=== PATIENT | female | born 1985 | race Two or more races ===

== ENCOUNTER 2024-06-13 19:05 | Emergency (ER) | payer BC ==
[~2024-06-13] VITALS: Ht 157.5 cm; Wt 61.7 kg
[2024-06-13 19:10] VITALS: TEMP 98.2
[2024-06-13 20:05] LABS: BASOPHILS # (AUTO) 0.1 K/uL (0.0-0.2); BASOPHILS % (AUTO) 0.9 % (0.0-2.0); EOSINOPHILS # (AUTO) 0.2 K/uL (0.0-0.7); EOSINOPHILS % (AUTO) 2.4 % (0.0-6.0); HEMATOCRIT 36 % (33-45); HEMOGLOBIN 12.3 g/dL (11.5-14.8); LYMPHOCYTES # (AUTO) 2.5 K/uL (0.8-4.8); LYMPHOCYTES % (AUTO) 28.3 % (20.0-44.0); MEAN CORPUSCULAR HEMOGLOBIN 31 PG (26.0-33.0); MEAN CORPUSCULAR HGB CONC 35 g/dl (31.0-36.0); MEAN CORPUSCULAR VOLUME 89 fL (82-100); MONOCYTES # (AUTO) 0.7 K/uL (0.1-1.30); MONOCYTES % (AUTO) 7.8 % (2.0-12.0); NEUTROPHILS # (AUTO) 5.4 K/uL (1.8-8.9); NEUTROPHILS % (AUTO) 60.6 % (43.0-81.0); PLATELET COUNT (AUTO) 200 K/uL (150-450); WHITE BLOOD COUNT (AUTO) 8.9 K/uL (4.3-11.0)
[2024-06-13 20:13] LABS: INR 1.04 (0.91-1.10); PARTIAL THROMBOPLASTIN TIME 26.6 SEC (24.3-34.3)
[2024-06-13 20:18] LABS: CALCIUM, SERUM 8.8 mg/dL (8.5-10.1); CREATININE 0.6 mg/dL (0.6-1.3); POTASSIUM 3.7 mmol/L (3.5-5.1)
[2024-06-13] MEDS ORDERED: SULF1TAB47 PO (20:38)
[2024-06-13] MEDS ORDERED: CEPH500T PO (20:38)
[2024-06-13 21:24] VITALS: BP 121/80; O2SAT 99
== END 2024-06-13 21:24 | disposition home or self-care (01) ==
LOC: ER 19:09
DX: L03.116 Cellulitis of left lower limb (principal)
CPT/HCPCS: 36415; 80048-TC; 85025-TC; 85730-TC; 93971-TC